=== PATIENT | female | born 1995 | race Two or more races ===

== ENCOUNTER 2025-08-03 07:34 | Emergency (ER) | payer OTHER, SELFPAY ==
[2025-08-03 07:41] VITALS: BP 159/107; PULSE 115; TEMP 36.8; O2SAT 96; BMI 36.6
--- NOTE | 2025-08-03 07:54 | ECG_ITS ---
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 Measurements Intervals [place] Rate: 92 P: 65 IA: 120 QRS: 72 QRSD: 88 T: 76 QT: 372 QTc: 422 Interpretive Statements 1100 Sinus rhythm 9110 normal ECG No previous ECG available for comparison Electronically Signed On 08-03-2025 11:10:40 EDT by DIAMOND COWART M.D.
--- NOTE | 2025-08-03 07:55 | ED_ITS ---
HPI HPI - General Adult General Chief complaint: Nausea/Vomiting/Diarrhea Stated complaint: vomiting and dizziness Time Seen by Provider: 08/03/25 07:48 Source: patient Mode of arrival: Wheelchair History of Present Illness HPI narrative: 29-year-old female presented to the emergency department for nausea and vomiting. She has been on Zepbound for an extended period of time but 2 days ago the dose was increased. She states she immediately vomited and then beginning yesterday she has been having nausea and vomiting. She went to another hospital emergency department and she states they did an EKG and they s ent her home. She continues to be vomiting today and there is some blood in it. Related Data Home Medications ?Medication ?Instructions ?Recorded ?Confirmed baclofen 10 mg tablet mg 08/03/25 bupropion HCl 150 mg 24 hr tablet, mg PO 08/03/25 extended release cyclobenzaprine 10 mg tablet mg 08/03/25 duloxetine 30 mg capsule,delayed mg PO 08/03/25 release pregabalin 200 mg capsule mg 08/03/25 tirzepatide (weight loss) 10 10 mg subcut QWEEK 08/03/25 mg/0.5 mL subcutaneous pen injector (Zepbound) Allergies Allergy/AdvReac Type Severity Reaction Status Date / Time amoxicillin Allergy Severe Anaphylaxis Verified 08/03/25 07:46 Opioid HPI Opioid Management Most Recent Opioid Data: Last Pain Scale 6 Today, 07:50 Review of Systems ROS Narrative A ten point review of systems is negative except as noted above. PFSH PFSH Social History Little interest or pleasure in doing things: not at all Feeling down, depressed, or hopeless: not at all Exam Narrative Exam Narrative: Nurses note and vital signs reviewed and patient is not hypoxic. General:The patient appears uncomfortable. She is in no acute respiratory distress Skin:Warm, dry, pallor noted.There is no rash noted. Small nonraised bruise present on her right anterior thigh, approximately 2-1/2 cm in length. Head:Normocephalic, atraumatic Eye: Normal conjunctiva, no drainage Ears, Nose, Mouth, and Throat: oral mucosa is moist. Nares patent. Cardiovascular:Regular Rate and Rhythm Respiratory:Patient is in no distress, no accessory muscle use, lungs are clear to auscultation, no wheezing, rales or rhonchi Back:non-tender GI: Obese soft and nontender nondistended Musculoskeletal: The patient has no evidence of calf tenderness, no pitting edema, symmetrical pulses noted bilaterally Neurological:A&O, normal speech Psychiatric:Cooperative, appears anxious Constitutional Vital Signs, click to edit/add: Last Vital Signs Temp 98.3 F 08/03/25 07:41 Pulse 115 H 08/03/25 07:41 Resp 24 H 08/03/25 07:41 BP 159/107 H 08/03/25 07:41 Pulse Ox 96 08/03/25 07:41 O2 Del Method Room Air 08/03/25 07:41 Course Vital Signs Vital signs: Vital Signs Temperature 98.3 F 08/03/25 07:41 Pulse Rate 115 H 08/03/25 07:41 Respiratory Rate 24 H 08/03/25 07:41 Blood Pressure 159/107 H 08/03/25 07:41 Pulse Oximetry 96 08/03/25 07:41 Oxygen Delivery Method Room Air 08/03/25 07:41 Temperature 98.3 F 08/03/25 07:41 Pulse Rate 115 H 08/03/25 07:41 Respiratory Rate 24 H 08/03/25 07:41 Blood Pressure 159/107 H 08/03/25 07:41 Pulse Oximetry 96 08/03/25 07:41 Oxygen Delivery Method Room Air 08/03/25 07:41 Medical Decision Making MDM Narrative Medical decision making narrative: Her workup including the CT of the abdomen is essentially negative. WBC is somewhat elevated. The patient reports she has not smoked marijuana in a long time. Her symptoms appear to be secondary to the Zepbound and she is going to speak to her prescribing physician about this issue. She is able to be discharged home and was given a prescription for Zofran yesterday from another emergency department. Treatment diagnosis and follow-up were discussed with the patient. Differential Diagnosis Differential Diagnosis: Medication side effect, nausea and vomiting, pancreatitis, sbo Medical Records Medical records reviewed: Yes I reviewed the patient's medical records Lab Data Lab results reviewed: Yes I reviewed the patient's lab results Labs: Lab Results 08/03/25 08/03/25 Range/Units 07:50 08:23 WBC 19.2 H (4.0-11.0) 10^3/uL RBC 4.52 (4.20-5.40) 10^6/uL Hgb 11.6 L (12.0-16.0) g/dL Hct 35.9 L (36.0-48.0) % MCV 79.4 L (81.0-99.0) fL MCH 25.7 L (26.7-34.0) pg MCHC 32.3 (29.9-35.2) g/dL RDW 19.2 H (11.0-15.0) % Plt Count 428 (150-450) 10^3/uL MPV 11.8 (9.5-13.5) fL Neut % (Auto) 89.0 H (43.0-75.0) % Lymph % (Auto) 6.8 L (20.5-60.0) % [place] % (Auto) 3.2 (1.7-12.0) % Eos % (Auto) 0.4 L (0.9-7.0) % Baso % (Auto) 0.2 (0.2-2.0) % Neut # (Auto) 17.1 H (1.4-6.5) 10^3/uL Lymph # (Auto) 1.3 (1.2-3.8) 10^3/uL [place] # (Auto) 0.6 (0.3-0.8) 10^3/uL Eos # (Auto) 0.1 (0.0-0.7) 10^3/uL Baso # (Auto) 0.0 (0.0-0.1) 10^3/uL Abs Immat Gran (auto) 0.07 H (0.00-0.03) 10^3/uL Imm/Tot Granulo (auto) 0.4 (0.0-0.5) % Sodium 142 (136-145) mmol/L Potassium 3.2 L (3.5-5.1) mmol/L Chloride 105 (98-107) mmol/L Carbon Dioxide 21.9 (21.0-32.0) mmol/L Anion Gap 18.3 BUN 5.0 L (7.0-18.0) mg/dL Creatinine 0.82 (0.55-1.02) mg/dL Est GFR ( Amer) >60 (>=60 mL/min/1.73m^2) Est GFR (Non-Af Amer) >60 (>=60 mL/min/1.73m^2) BUN/Creatinine Ratio 6.1 Glucose 105 (74-106) mg/dL Calcium 8.7 (8.5-10.1) mg/dL Total Bilirubin 0.8 (0.2-1.0) mg/dL Direct Bilirubin 0.4 H (0.0-0.2) mg/dL AST 12 L (15-37) U/L ALT 14 (14-59) U/L Alkaline Phosphatase 109 (46-116) U/L Total Protein 7.6 (6.4-8.2) g/dL Albumin 3.2 L (3.4-5.0) g/dL Globulin 4.4 g/dL Albumin/Globulin Ratio 0.7 Amylase 21 L (25-115) U/L Lipase 16.0 (16.0-77.0) U/L Serum HCG, Qual Negative (NEGATIVE) Imaging Data CT scan - abdomen: Radiologist's impression: ITS Impressions Abdomen/Pelvis CT 08/03/25 08:27 IMPRESSION: Negative acute inflammatory process or bowel obstruction. Right renal calculus, nonobstructive. Impression dictated by: Cassius Ro M.D. 08/03/2025 9:35 AM Dictation Location: [place] [address] Electronically authenticated by: [id number] Y Date: 08/03/2025 09:35 ECG Data Attestation: I personally reviewed and interpreted this ECG as follows: (EKG on my interpretation shows sinus rhythm with a rate of 92 and no acute change) Discharge Plan Discharge Chief Complaint: Nausea/Vomiting/Diarrhea Clinical Impression: Nausea & vomiting, Medication side effect Patient Disposition: Home, Self-Care Time of Disposition Decision: 09:44 Condition: Good Mode of Transportation: Private Vehicle Prescriptions / Home Meds: No Action Zepbound 10 mg/0.5 mL pen injector 10 mg subcut QWEEK cyclobenzaprine 10 mg tablet baclofen 10 mg tablet bupropion HCl 150 mg tablet extended release 24 hr PO duloxetine 30 mg capsule,delayed release(DR/EC) PO pregabalin 200 mg capsule Print Language: Argentine Instructions: Acute Nausea and Vomiting (ED), Adverse Drug Reaction (ED) Referrals: Physician,Non-Staff, MD [Primary Care Provider] - 1 week
[2025-08-03] MEDS: DIAZEPAM 10 MG/2 ML SYRINGE 2.5 MG IV (08:08)
[2025-08-03 08:09] LABS: Hematocrit 35.9 % (36.0-48.0); Hemoglobin 11.6 g/dL (12.0-16.0); Immature Granulocytes Abs Auto 0.07 10^3/uL (0.00-0.03); Immature Granulocytes Pct Auto 0.4 % (0.0-0.5); Lymphocytes Absolute Auto 1.3 10^3/uL (1.2-3.8); Mean Corpuscular HGB Conc 32.3 g/dL (29.9-35.2); Mean Corpuscular Hemoglobin 25.7 pg (26.7-34.0); Mean Corpuscular Volume 79.4 fL (81.0-99.0); Platelet Count 428 10^3/uL (150-450); Red Blood Count 4.52 10^6/uL (4.20-5.40); White Blood Count 19.2 10^3/uL (4.0-11.0)
[2025-08-03] MEDS: 0.9 % SODIUM CHLORIDE 1,000 ML 1000 ML IV (08:09)
--- NOTE | 2025-08-03 08:27 | CT_ITS ---
The [address] [address] Patient Name: DAVI CARLSON MRN: [id number] date: 1995 Sex: F Assigned Patient Location: ER Current Patient Location: ED.MAIN Accession/Order Number: [id number] Exam Date: 08/03/2025 08:49 Report Date: 08/03/2025 09:35 At the request of: DINA MOE MD Procedure: CT abdomen pelvis w con CT ABDOMEN AND PELVIS WITH INTRAVENOUS CONTRAST: CLINICAL HISTORY: abd pain COMPARISON: None TECHNIQUE: Spiral images were obtained through the abdomen and pelvis following the administration of intravenous contrast. This CT exam was performed using one or more following dose reduction techniques: Automated exposure control, adjustment of the mA and/or kV according to patient size, or use of iterative reconstruction technique. FINDINGS: Lung Bases: [Hypoventilatory change.] Organs:Liver, gallbladder, spleen, adrenals, kidneys and pancreas are unremarkable right renal calculus noted 4 mm in size. No hydronephrosis or obstructive uropathy.[ GI: Mild retained stool. No bowel obstruction. Mild sigmoid diverticulosis. Appendix not visualized. No pericecal inflammatory changes.[ Pelvis:[Bladder, uterus and adnexal regions unremarkable. No adnexal mass.] Peritoneum/Retroperitoneum:No free air or free fluid. No adenopathy. Aorta normal caliber.[ Abd wall/Bones:Mild degenerative changes.[ CT/CT abdomen pelvis w con IMPRESSION: Negative acute inflammatory process or bowel obstruction. Right renal calculus, nonobstructive. Impression dictated by: Cassius Ro M.D. 08/03/2025 9:35 AM Dictation Location: [employer] Electronically authenticated by: [id number] Y Date: 08/03/2025 09:35
[2025-08-03 08:39] LABS: Anion Gap 18.3; Blood Urea Nitrogen 5.0 mg/dL (7.0-18.0); Calcium 8.7 mg/dL (8.5-10.1); Carbon Dioxide 21.9 mmol/L (21.0-32.0); Chloride 105 mmol/L (98-107); Estimated GFR (African America >60 (>=60 mL/min/1.73m^2); Estimated GFR (Non-African Ame >60 (>=60 mL/min/1.73m^2); Glucose 105 mg/dL (74-106); Potassium 3.2 mmol/L (3.5-5.1); Sodium 142 mmol/L (136-145)
[2025-08-03] MEDS: MORPHINE SULFATE 4 MG/ML VIAL IV (08:41)
[2025-08-03 08:59] LABS: Alanine Aminotransferase 14 U/L (14-59); Albumin Globulin Ratio 0.7; Albumin Level 3.2 g/dL (3.4-5.0); Alkaline Phosphatase 109 U/L (46-116); Amylase 21 U/L (25-115); Aspartate Amino Transferase 12 U/L (15-37); Globulin 4.4 g/dL; Lipase 16.0 U/L (16.0-77.0); Total Protein 7.6 g/dL (6.4-8.2)
[2025-08-03 09:57] VITALS: BP 148/92; PULSE 88; O2SAT 98
== END 2025-08-03 10:03 | disposition home or self-care (01) ==
PROVIDERS: Emergency Provider Emergency Medicine
DX: R11.2 Nausea with vomiting, unspecified (principal); T50.995A Adverse effect of other drugs, medicaments and biological substances, initial encounter
CPT/HCPCS: 36415; 74177; 80048; 80076; 82150; 83690; 84703; 85025; 93005; 96361; 96374; 96375; 99285; J2270; J2405; J3360; Q9967